=== PATIENT | female | born 2000 | race Caucasian/White ===

== ENCOUNTER 2020-11-23 21:00 | Emergency (ER) | payer MEDICAID, SELFPAY ==
--- NOTE | 2020-11-23 21:06 | ED.GENADUL_ITS ---
Discharge Plan Disposition Patient Disposition: HOME Condition: Good Discharge Details Clinical Impression: Cellulitis of fourth toe of left foot Primary Care Provider: Unknown,Unknown ED Provider: Primitivo Delcid Home Meds and New Rx's Prescriptions: New cephalexin [Keflex] 500 mg capsule 500 mg PO QID 7 Days Qty: 28 RF: 0 Discharge Instructions Instructions: Cephalexin (By mouth), Cellulitis (ED) Additional Instructions: At this time you have mild cellulitis on your foot. Please take the Keflex every 6 hours as directed. Please make sure to eat a yogurt with live cultures or probiotics to help prevent any diarrhea. If you notice any worsening of your symptoms, or any new symptoms such as continued spreading of the redness, pain, vomiting, diarrhea, fever, chills, shortness of breath, chest pain, numbness, weakness, or fainting , please return immediately to the emergency department for reevaluation. Please follow up with your primary care provider as soon as possible for reassessment and reevaluation. As always, it was a pleasure participating in your medical care today. Medical Decision Making 20-year-old female with no significant past medical history presents today for evaluation of cellulitis in her left foot. The patient states that for the last day she has noticed mild redness extending from the fourth toe on the left foot up the foot in the pattern of one of her veins. She has noticed that creeping up proximally throughout the night. There is a small scratch on the medial aspect of her fourth toe, she is uncertain where this came from. She denies any animal contact or cat scratch to this area. She does have dogs but denies them having any interaction with it. Patient states that she is up-to-date on all of her vaccines. She denies any cough, fever, chills. She does admit to mild pain at the scratch on the toe. No history of diabetes, HIV, or IV or illicit drug use. Exam demonstrates a small superficial scratch on the left fourth toe at the medial aspect with redness and proximally extending redness outlining the draining vein. No evidence of flexor or extensor tenosynovitis, no signs of a sausage shaped digit, no fever or chills, no concerning risk factors/red flags of HIV, IV drug use or diabetes. Patient will be given for 500 mg Keflex pills here, and a prescription for 7 days of Keflex 500 mg 4 times daily. Immunizations are up-to-date. Discussed red flags which return. I have extensively reviewed the treatment plan and discharge instruc tions with the patient. I have addressed all patient concerns at this time. The patient was made aware of what symptoms to monitor for that would warrant a return to the emergency department. Discussed the plan with the patient, they demonstrate verbal understanding and agreement with our assessment and plan at this time. The documentation in this chart was dictated using [employer] dictation software. Please excuse any dictation errors. HPI General Date/Time Provider Initiated Documentation: 11/23/20 21:01 . HPI Narrative: 20-year-old female with no significant past medical history presents today for evaluation of cellulitis in her left foot. The patient states that for the last day she has noticed mild redness extending from the fourth toe on the left foot up the foot in the pattern of one of her veins. She has noticed that creeping up proximally throughout the night. There is a small scratch on the medial aspect of her fourth toe, she is uncertain where this came from. She denies any animal contact or cat scratch to this area. She does have dogs but denies them having any interaction with it. Patient states that she is up-to-date on all of her vaccines. She denies any cough, fever, chills. She does admit to mild pain at the scratch on the toe. No history of diabetes, HIV, or IV or illicit drug use. Related Data Home Medications Medication Instructions Recorded Confirmed cephalexin [Keflex] 500 mg PO QID 7 Days #28 cap 11/23/20 Previous Rx's Medication Instructions Recorded cephalexin [Keflex] 500 mg PO QID 7 Days #28 cap 11/23/20 Allergies Allergy/AdvReac Type Severity Reaction Status Date / Time iodine Allergy Unverified 11/23/20 21:17 Review of Systems All systems reviewed & are unremarkable except as noted in HPI and below [facility] Social History Smoking risk assessment performed?: No Exam Narrative Exam Narrative: 1.Const: Well-nourished, Well-developed, appearing stated age 2.Eyes: PERRL, no conjunctival injection, and symmetrical lids. 3.ENT: Atraumatic external nose and ears. Moist MM. Neck: Symmetric, trachea midline, No thyromegaly. 4.CVS: +S1/S2, No murmurs or gallops. Peripheral pulses 2+ and equal in all extremities. Brisk capillary refill in all extremities. 5.RESP: Unlabored respiratory effort. Clear to auscultation bilaterally. No wheezes rales or rhonchi 6.GI: Soft, Nontender/Nondistended, No hepatosplenomegaly. No guarding or rebound. 7.MSK: Normocephalic/Atraumatic, Extremities w/o deformity or ttp No cyanosis or clubbing, Normal movement of all extremities 8.Skin: Warm, Dry. The fourth digit on the left foot demonstrates a small 1 cm superficial scrape, no bleeding, no scab, mild redness around this, no fluctuance, no crepitus. Extending proximally roughly 6 cm you can see the red outline a part of the draining veins coming from the toe. Not overly tender on palpation. Aside for the redness there is no warmth. No other evidence of circumferential redness, swelling, or other abnormality. No sausage shaped digit, no significant pain with passive or active extension or flexion. 9.Neuro: doctor of audiology II-XII grossly intact. Sensation grossly intact, no focal neurologic deficits. 10.Psych: (AAO) x3. Appropriate mood and affect
[2020-11-23] MEDS: Cephalexin 500 MG CAP, 4 CAPS/BTL PO (21:16)
[2020-11-23 21:17] VITALS: BP 140/74; PULSE 82; RESP 16; TEMP 36.5; O2SAT 99
== END 2020-11-23 21:15 | disposition home or self-care (01) ==
PROVIDERS: Emergency Provider Student in an Organized Health Care Education/Training Program
DX: L03.032 Cellulitis of left toe (principal); S90.416A Abrasion, unspecified lesser toe(s), initial encounter; X58.XXXA Exposure to other specified factors, initial encounter
CPT/HCPCS: 99283

== ENCOUNTER 2021-01-09 00:32 | Emergency (ER) | payer MEDICAID, SELFPAY ==
--- NOTE | 2021-01-09 00:34 | ED.GENADUL_ITS ---
Discharge Plan Disposition Patient Disposition: HOME Condition: Good Discharge Details Clinical Impression: Acute thigh pain Primary Care Provider: None,None ED Provider: Petar Shipley Meds and New Rx's Prescriptions: New ibuprofen 600 mg tablet 600 mg PO Q8H PRNQty: 15 RF: 0 Continued Nexplanon 68 mg Implant SUBDERMAL RF: 0 Discharge Instructions Additional Instructions: D-dimer is negative and it is very unlikely that this is clot. Will treat as musculoskeletal place you on ibuprofen with activity as tolerated and heat on and off for the next few days. Will refer to care management to help you with obtaining primary care in the area. Return to ED for fever, rash, worsening pain, neurologic change, chest pain, shortness of breath. Referrals: Care Management [Provider Group] Medical Decision Making Most likely this is musculoskeletal pain involving the hamstring. No evidence of cellulitis or abscess. No evidence of zoster. No evidence of radiculopathy. Consider clot but no risk factors, no evidence of superficial thrombophlebitis, no cord, no edema. Will obtain D-dimer and give ibuprofen for presumed musculoskeletal pain. D-dimer is negative. Given lack of risk factors I feel this is enough to rule out DVT. Will treat as musculoskeletal with ibuprofen, activity as tolerated, heat. Needs primary care in the area so will refer to care management. Return to ED if problems. HPI General Mode of arrival: ambulatory . Date/Time Provider Initiated Documentation: 01/09/21 00:34 . Limitations to Documentation: no limitations . Information obtained by: patient and RN notes reviewed . HPI Narrative: Patient presents to the ED with left thigh pain which is lateral and medial in nature. Pain worse with movement and pressure. Denies any injury. Denies rash, erythema, fever. Denies back pain. Denies abdominal pain or urinary symptoms. Denies any numbness or weakness. Has tried Tylenol but nothing else. Cold seems to make the pain worse. Has had for the last 2 days and seemingly g etting worse with inability to sleep tonight prompting ED visit. Related Data Home Medications Medication Instructions Recorded Confirmed Nexplanon SUBDERMAL 01/09/21 ibuprofen 600 mg PO Q8H PRN #15 tab 01/09/21 Previous Rx's Medication Instructions Recorded ibuprofen 600 mg PO Q8H PRN #15 tab 01/09/21 Allergies Allergy/AdvReac Type Severity Reaction Status Date / Time iodine Allergy Unverified 01/09/21 00:40 General QAMAR: 4 Review of Systems Narrative: As documented in HPI otherwise negative as below. Const: no fever, chills, weakness Resp: no cough, SOB, pleuritic pain CV: no CP, diaphoresis, edema, syncope GI: no abdominal pain, nausea, vomiting, diarrhea Neuro: no headache, numbness, focal weakness, confusion PFS Medical History No significant past medical history Surgical History No significant past surgical history Social History Smoking/Tobacco Use Status: Never Smoking risk assessment performed?: Yes Alcohol Intake: never Drug use: Never Substance use type: does not use Do you feel safe at home: Yes Do you feel safe in your relationship?: Yes Exam Narrative Exam Narrative: Const: WDWN female in NAD. HEENT: NC/AT. Normal facial exam. Eyes: Normal conjunctiva and sclera. Neck: Supple. Trachea midline. Lungs: Normal respiratory effort. Cor: RRR. Good distal pulses. Back: No LS spine tenderness. No lumbar muscle tenderness. Neuro: A+O x 3. Normal speech, mentation, gait. Cranial nerves II - XII grossly intact. No gross motor or sensory deficit. Ext: No C/C/E. Normal appearing LLE. Tender to palpation without mass, cords, firmness lateral mid thigh and medial mid thigh. Nothing posterior. Normal strength and sensation. Normal pulses. Skin: Warm and dry without rash.
[2021-01-09 00:36] VITALS: BP 121/76; PULSE 78; RESP 18; TEMP 36.6; O2SAT 98
[2021-01-09 00:44] VITALS: RESP 14
[2021-01-09] MEDS: Ibuprofen 600 MG TAB PO (01:02)
[2021-01-09 01:35] LABS: D-Dimer 195 ng/mlFEU (<500)
--- NOTE | 2021-01-09 04:32 | NUR.NOTE ---
Nursing Note: Referral faxed to care management for pcp to be arranged 03/11/2021 libl
== END 2021-01-09 01:50 | disposition home or self-care (01) ==
PROVIDERS: Emergency Provider Emergency Medicine
DX: M79.652 Pain in left thigh (principal)
CPT/HCPCS: 36415; 99283; 85379